=== PATIENT | female | born 1945 | race Caucasian/White ===

== ENCOUNTER → 2016-09-29 | Outpatient (CLI) | payer OTHER ==
[~2016-09-29] MED LIST: ALBUAER2 INH; ASPCH81 PO; CALCTAB5 PO; COLE625T PO; NIAC1TAB59 PO; PRED-301 PO; SNG10 PO; SYMIN160 INH; TRIA3AER NAE
--- NOTE | 2016-09-30 08:02 | MAMMOGRAPHY REPORT ---
BILATERAL DIGITAL SCREENING MAMMOGRAM WITH CAD: 09/29/2016 CLINICAL HISTORY: Routine screening. Patient has no complaints. TECHNIQUE: Bilateral CC and MLO views were obtained. Current study was also evaluated with a Compute r Aided Detection (CAD) system. COMPARISON: Comparison is made to exams dated: 09/13/2015 mammogram, 08/29/2014 mammogram, 07/28/2013 m ammogram, 07/27/2012 mammogram, 07/22/2011 mammogram, and 05/28/2010 mammogram - [facility] er. BREAST COMPOSITION: The tissue of both breasts is heterogeneously dense, which may obscure small mas ses. FINDINGS: There are stable faint punctate microcalcifications scattered bilaterally, a few benign gra m calcifications in the right breast and mild vascular calcification bilaterally. No no suspicious m ass, architectural distortion or cluster of suspicious microcalcifications is seen. IMPRESSION: ACR BI-RADS CATEGORY 1: NEGATIVE There is no mammographic evidence of malignancy. A 1 year screening mammogram is recommended. The pa tient will receive written notification of the results. Approximately 10% of breast cancers are not detected with mammography. A negative mammographic report should not delay biopsy if a clinically suggestive mass is present. Janel Puentes M.D. ay/:09/29/2016 14:51:06 Multifocal Button Grinder: Brittani KUMARI(R)(M), [facility] letter sent: Normal 1/2 BI-RADS Code: ACR BI-RADS Category 1: Negative
== END | disposition home or self-care (01) ==
LOC: C.MAMM 11:52
PROVIDERS: ATTEND Obstetrics & Gynecology
DX: Z12.31 Encounter for screening mammogram for malignant neoplasm of breast (principal)

== ENCOUNTER → 2017-03-23 | Outpatient (CLI) | payer OTHER | END | disposition home or self-care (01) | LOC: C.PAPS 18:13 | PROVIDERS: ATTEND Obstetrics & Gynecology | DX: Z01.419 Encounter for gynecological examination (general) (routine) without abnormal findings (principal) ==

== ENCOUNTER → 2017-03-24 | Outpatient (CLI) | payer OTHER ==
[2017-03-24 14:06] LABS: MANUAL MICROSCOPIC REQUIRED? YES; REVIEW REQ? NO; URINE APPEARANCE CLEAR (CLEAR); URINE BILIRUBIN NEG (NEG); URINE COLOR YELLOW; URINE NITRITE NEG (NEG); URINE PH 5.5 (4.5-7.5); URINE SPECIFIC GRAVITY 1.011 (1.000-1.030); UROBILINOGEN NEG (NEG); ZZUR CULT IF INDIC CLEAN CATCH NO
[2017-03-24 14:14] LABS: URINE BACTERIA NEG (NEG); URINE RBC 0-4 /hpf (0-4); URINE WBC 0 /hpf (0-5)
== END | disposition home or self-care (01) ==
LOC: C.LAB1850 12:28
PROVIDERS: ATTEND Obstetrics & Gynecology
DX: N39.498 Other specified urinary incontinence (principal)

== ENCOUNTER → 2017-04-06 | Outpatient (CLI) | payer OTHER ==
[2017-04-06 13:17] LABS: BASO % 0.4 %; BASO ABS # 0.03 K/uL (0-0.2); COMPLETE YES; EOS % 4.2 %; HEMATOCRIT 42.4 % (37-47); IG% 0.3 %; LYMPH % 27.6 %; LYMPH ABS # 1.97 K/uL (1.2-3.4); MEAN CELL VOLUME 92.6 fL (80-100); MEAN CORPUSCULAR HEMOGLOBIN 30.3 pg (25-34); MEAN CORPUSCULAR HGB CONC 32.8 g/dl (32-36); MEAN PLATELET VOLUME 10.6 fL (7.4-10.4); MONO % 10.7 %; NEUT % 56.8 %; PLATELET COUNT 261 K/uL (130-400); RED BLOOD COUNT 4.58 M/uL (4.2-5.4); WHITE BLOOD COUNT 7.13 K/uL (4.8-10.8)
[2017-04-06 13:46] LABS: BLOOD UREA NITROGEN 11 mg/dl (7-18); BUN/CREATININE RATIO 12.7 (10-20); CALCIUM 8.9 mg/dl (8.5-10.1); CARBON DIOXIDE 28 mmol/L (21-32); CHLORIDE 107 mmol/L (98-107); CHOLESTEROL 248 mg/dl (0-200); CREATININE 0.86 mg/dl (0.60-1.20); GLUCOSE 77 mg/dl (70-99); POTASSIUM 3.5 mmol/L (3.5-5.1); SODIUM 141 mmol/L (136-145)
[2017-04-06 13:57] LABS: CHOLESTEROL/HDL RATIO 3.4; HDL CHOLESTEROL 74 mg/dl; LDL CHOLESTEROL CALCULATED 153 mg/dl; TRIGLYCERIDES 104 mg/dl (0-150); VERY LOW DENSITY LIPOPROT CALC 21 mg/dl
[2017-04-06 14:16] LABS: ESTIMATED AVERAGE GLUCOSE 120 mg/dl; HA1C FLAG Normal (Normal)
[2017-04-06 15:10] LABS: URINE APPEARANCE TURBID (CLEAR); URINE BILIRUBIN NEG (NEG); URINE COLOR DK YELLOW; URINE EPITHELIAL CELL AUTO 20-30 /lpf (0-5); URINE NITRITE NEG (NEG); URINE SPECIFIC GRAVITY 1.024 (1.000-1.030); UROBILINOGEN NEG (NEG)
[2017-04-06 15:11] LABS: MANUAL MICROSCOPIC REQUIRED? NO; REVIEW REQ? NO
== END | disposition home or self-care (01) ==
LOC: C.LAB1850 11:51
PROVIDERS: ATTEND Internal Medicine
DX: I10 Essential (primary) hypertension (principal)

== ENCOUNTER 2017-07-15 19:30 | Inpatient (IN) | payer OTHER ==
[~2017-07-15] VITALS: Ht 157.5 cm; Wt 65.3 kg
[2017-07-15] MEDS ORDERED: METHYLPREDNISOLONE 125 MG VIAL ONE (21:24)
[2017-07-15 23:22] LABS: HEMATOCRIT 39.6 % (37-47); MEAN CELL VOLUME 92.3 fL (80-100); MEAN CORPUSCULAR HEMOGLOBIN 30.3 pg (25-34); MEAN CORPUSCULAR HGB CONC 32.8 g/dl (32-36); PLATELET COUNT 217 K/uL (130-400); RED CELL DISTRIBUTION WIDTH CV 12.6 % (11.5-14.5); RED CELL DISTRIBUTION WIDTH SD 42.5 fL (36.4-46.3); WHITE BLOOD COUNT 8.39 K/uL (4.8-10.8)
[2017-07-15 23:24] LABS: BLOOD UREA NITROGEN 9 mg/dl (7-18); CALCIUM 8.7 mg/dl (8.5-10.1); CARBON DIOXIDE 28 mmol/L (21-32); CREATININE 0.89 mg/dl (0.60-1.20); GLUCOSE 124 mg/dl (70-99); POTASSIUM 3.3 mmol/L (3.5-5.1); SODIUM 135 mmol/L (136-145)
--- NOTE | 2017-07-15 23:40 | History and Physical ---
History & Physical Date & Time of Service: Jul 15, 2017 at 23:33 Chief Complaint: Trouble Breathing Primary Care Physician: Jeremie Durand M.D. History of Present Illness Source: patient Pt is a pleasant 71F with a PMhx of adult onset asthma that presents with a two day history of worsening SOB and cough. Pt reports feeling chills starting today as well. The cough is worse at night and she is coughing up purulent sputum. Pt saw her Die Cast Supervisor today that started her on 40mg daily of Prednisone. Patient did not have a chance to fill that prescription. Patient has been diagnosed with severe intermittent asthma that requires 5mg of Prednisone daily to control. Pt denies any smoking history although her dad and step mom both smokes. Pt is not on home oxygen. PMHx: no coronary events. FMHx: Twin brother has heart disease. SHx: Pt is retired. Never smoker. Past Medical/Surgical History Medical Problems: (1) Asthma Social History Marital Status: Immunizations History of Influenza Vaccine: Yes History of Tetanus Vaccine?: No History of Pneumococcal: No Pneumococcal Date: Jan 23, 2010 History of Hepatitis B Vaccine: No Allergies Coded Allergies: No Known Allergies (Verified , 07/16/17) Home Medications Scheduled Alendronate/Cholecalciferol (Fosamax+D 70MG/2800 Iu), 1 TABLET PO WK Aspirin (Aspirin Ec), 81 MG PO DAILY Azithromycin (Zithromax Z-Carlo), 1 PKT PO UD Budesonide/Formoterol Fumarate (Symbicort 160/4.5 Inhaler ), 2 PUFFS INH BID Colesevelam Hcl (Welchol), 3 TABS PO BID Montelukast Sodium (Singulair), 10 MG PO DAILY Niacin Ext Rel (Niaspan Ext Rel), 500 MG PO DAILY Prednisone (Prednisone), 5 MG PO DAILY Review of Systems Constitutional: + chills, No fever, No weight loss ENT: No hearing loss Respiratory: + cough, + sputum, + wheezing, + shortness of breath, + dyspnea on exertion, + dyspnea at rest Abdomen: No pain, No nausea, No vomiting, No diarrhea, No constipation Musculoskeletal: + joint pain (chronic back pain) Genitourinary - Female: No dysuria, No urinary frequency Neurologic: No memory loss, No paralysis, No weakness, No numbness/tingling Endocrine: No fatigue Integumentary: No rash Physical Exam General Appearance: WD/WN, no apparent distress Head: normocephalic, atraumatic Eyes: normal inspection, PERRL ENT: normal ENT inspection Neck: supple Respiratory/Chest: chest non-tender, + crackles (right size), + wheezing ( lower lobes bilaterally) Cardiovascular: regular rate, rhythm, no edema, no gallop, no JVD, no murmur, normal peripheral pulses, + tachycardia Abdomen/GI: normal bowel sounds, non tender, soft, no organomegaly, no pulsatile mass Extremities/Musculoskelatal: no calf tenderness, no pedal edema, normal range of motion, + pertinent finding (RA in all PIP joints bilaterally ) Neurologic/Psych: manager student services II-XII nml as tested, no motor/sensory deficits, alert, normal mood/affect, oriented x 3 Diagnostics Laboratory Results Results Past 24 Hours Test 07/15/17 21:45 Range/Units White Blood Count 8.39 4.8-10.8 K/uL Red Blood Count 4.29 4.2-5.4 M/uL Hemoglobin 13.0 12.0-16.0 g/dL Hematocrit 39.6 37-47 % Mean Corpuscular Volume 92.3 80-100 fL Mean Corpuscular Hemoglobin 30.3 25-34 pg Mean Corpuscular Hemoglobin Concent 32.8 32-36 g/dl RDW Standard Deviation 42.5 36.4-46.3 fL RDW Coefficient of Variation 12.6 11.5-14.5 % Platelet Count 217 130-400 K/uL Mean Platelet Volume 10.0 7.4-10.4 fL Sodium Level 135 136-145 mmol/L Potassium Level 3.3 3.5-5.1 mmol/L Chloride Level 102 98-107 mmol/L Carbon Dioxide Level 28 21-32 mmol/L Anion Gap 5.0 3-11 mmol/L Blood Urea Nitrogen 9 7-18 mg/dl Creatinine 0.89 0.60-1.20 mg/dl Estimated GFR () 75.6 Estimated GFR (Non- 65.2 BUN/Creatinine Ratio 10.3 10-20 Random Glucose 124 70-99 mg/dl Calcium Level 8.7 8.5-10.1 mg/dl Total Creatine Kinase 284 26-192 U/L Creatine Kinase MB 1.0 0.5-3.6 ng/ml Creatine Kinase MB Ratio 0-3.0 Troponin I < 0.015 0-0.045 ng/ml Microbiology Results 07/15/17 Blood Culture, Received Pending 07/15/17 Blood Culture, Received Pending EKG Sinus Tachycardia - reviewed, no ST segment abnormalities. Impression Assessment and Plan Pleasant 71F with adult onset asthma is being admitted for asthma exacerbation. Given 125mg IV solu medrol in the ER with significant improvement in wheezing and cough. Has a new Oxygen requirement. Plan is for IV Steroids, Inhalers and Abx and DC when ready. Asthma Exacerbation Adult onset vs COPD, it's unclear. X-ray results not reviewed. Pt has wheezing and crackles on exam. Consider X- ray if pt is not improving. Continue Azithromycin 250mg x 4 days. (started as outpatient) c/w Montekulast QHS. Duonebs Q6H Albuterol Nebs Q2H PRN. continue home Symbicort 2puffs BID. Solu Medrol 60mh Q6H. Wean O2 as tolerated. Keep an eye on sugars now that pt is on Prednisone. Low Potassium KCL 20mg BID PO. Elevated CK (384) Unclear what is the etiology, was a >600 in a previous visit. Pt is not on a statin. Primary Prevention c/w ASA daily HLD C/w Niacin daily pt cannot tolerate statins. Will hold other HLD agent because it's non formulary. DVT Proph: Hep SQ BID. Diet: Heart Healthy Dispo: Anticipate no DC needs. Admit to Med Surg. FULL CODE - Pt does not want [facility] ventilation. Resident Physician Supervision Note: Pt evaluated independently. I discussed the case with the resident and agree with the findings and plan as documented in the note. Any exceptions or clarifications are listed here: 71 y/o F Hx osteoporosis, asthma - likely COPD - prednisone-dependent Presents with progressive SOB and was hypoxic on arrival to the ER. It was reported by family that she may have been confused earlier in the day OE AAO x 3 S1,2 R Very poor air movement NT, ND No CCE P: Placed on IV steroids, nebs, Abx, 02 protocol Would consult pulm if there is no short-term improvement Documented By: Samy Mccullough Resuscitation Status VTE Prophylaxis Will order VTE Prophylaxis: Yes Resident Involvement: Resident Care Provided Care Provided: Adult Hospital Medicine
[2017-07-15] MEDS ORDERED: ALUMINUM/MAGNESIUM/SIMETH (MAALOX MAX) 30 ML UDC PO PRN (23:45)
[2017-07-15] MEDS ORDERED: ACETAMINOPHEN 325 MG TAB PO PRN (23:45)
[2017-07-15] MEDS ORDERED: ONDANSETRON INJ 2 MG/ML 2 ML VIAL IV PRN (23:45)
[2017-07-15] MEDS ORDERED: POLYETHYLENE (MIRALAX) 17 GM PACK PO PRN (23:45)
[2017-07-15] MEDS ORDERED: MAGNESIUM HYDROXIDE SUSP 30 ML UDC PO PRN (23:45)
[2017-07-15] MEDS ORDERED: ZOLPIDEM TARTRATE 5 MG TAB PO PRN ×2 (23:45)
[2017-07-15] MEDS ORDERED: ALBUTEROL 0.083% NEBU SOLN 3 ML VIAL INH PRN (23:45)
[2017-07-16] VITALS (8 sets, daily range): BP systolic 116–143; BP diastolic 61–70; PULSE 88–115; TEMP 36.6–36.9; O2SAT 91–96; Ht 157.5 cm; Wt 65.3 kg
[2017-07-16] MEDS ORDERED: ASPI81TA28 PO (00:15)
[2017-07-16] MEDS ORDERED: WLC625 PO (00:17)
[2017-07-16] MEDS ORDERED: MONT1TAB3 PO (00:17)
[2017-07-16] MEDS ORDERED: FSMD/70 PO (00:17)
[2017-07-16] MEDS ORDERED: AZITTAB PO (00:18)
--- NOTE | 2017-07-16 02:40 | EMERGENCY ROOM VISIT NOTE ---
History Report prepared by Penny: Lisa Cohen Under the Supervision of: Dr. Sina Gates M.D. Chief Complaint: SHORTNESS OF BREATH Stated Complaint: TROUBLE BREATHING History of Present Illness The patient is a 71 year old female who presents to the Emergency Room with complaints of worsening SOB starting earlier today. The patient has been having a severe cough for the past 2 weeks. She has a history of asthma. She saw her lung doctor today who started her on Zithromax and increased her prednisone. Her SOB has worsened since her appointment. She has been using nebulizers at home to only brief relief. She reports back pain and nausea. She has chest pain from coughing. Her notes that she has been weak and confused. She has been admitted once before for SOB. She is not on oxygen at home. She has a history of hypertension and high cholesterol. She has never smoked. Source of History: patient, spouse/significant other Onset: earlier today Position: other (breathing) Quality: other (SOB) Timing: worsening Modifying Factors (Relieving): other (nebulizer) Associated Symptoms: + cough, + chest pain, + back pain, + weakness Review of Systems See HPI for pertinent positives and negatives. A total of ten systems were reviewed and were otherwise negative. Past Medical & Surgical Medical Problems: (1) Asthma exacerbation Family History No pertinent family history stated. Social History Smoking Status: Never Smoker Marital Status: Housing Status: lives with family Current/Historical Medications Scheduled Alendronate/Cholecalciferol (Fosamax+D 70MG/2800 Iu), 1 TABLET PO WK Aspirin (Aspirin Ec), 81 MG PO DAILY Azithromycin (Zithromax Z-Carlo), 1 PKT PO UD Budesonide/Formoterol Fumarate (Symbicort 160/4.5 Inhaler ), 2 PUFFS INH BID Colesevelam Hcl (Welchol), 3 TABS PO BID Montelukast Sodium (Singulair), 10 MG PO DAILY Niacin Ext Rel (Niaspan Ext Rel), 500 MG PO DAILY Prednisone (Prednisone), 5 MG PO DAILY Allergies Coded Allergies: No Known Allergies (Verified , 07/16/17) Physical Exam Physical Exam GENERAL: Awake, alert, well-appearing, in moderate distress HENT: Normocephalic, atraumatic. Oropharynx unremarkable. EYES: Normal conjunctiva. Sclera non-icteric. NECK: Supple. No nuchal rigidity. FROM. No masses. RESPIRATORY: Clear to auscultation. Inspiratory and expiratory wheezes. Scattered rhonchi. No rales. Increased respiratory effort. CARDIAC: Normal rate. Normal rhythm. No murmurs. No rubs. Extremities warm and well perfused. Pulses equal. No JVD. GI: Soft, non-distended. No tenderness to palpation. No rebound or guarding. No masses. RECTAL: Deferred. MUSCULOSKELETAL: Atraumatic. Chest examination reveals no tenderness. There is no CVA tenderness to palpation. No joint edema. LOWER EXTREMITIES: Calves are equal size bilaterally and non-tender. No edema. No discoloration. NEURO: Normal sensorium. No sensory or motor deficits noted. SKIN: No rash or jaundice noted. Medical Decision & Procedures ER Provider Diagnostic Interpretation: X-ray: Per my interpretation, radiologist review. Chest X-ray: Trace effusion. Possible minimal pulmonary edema. No other pathology noted. Laboratory Results 07/15/17 21:45 07/15/17 21:45 Test 07/15/17 21:45 Red Blood Count 4.29 M/uL (4.2-5.4) Mean Corpuscular Volume 92.3 fL (80-100) Mean Corpuscular Hemoglobin 30.3 pg (25-34) Mean Corpuscular Hemoglobin Concent 32.8 g/dl (32-36) RDW Standard Deviation 42.5 fL (36.4-46.3) RDW Coefficient of Variation 12.6 % (11.5-14.5) Mean Platelet Volume 10.0 fL (7.4-10.4) Anion Gap 5.0 mmol/L (3-11) Estimated GFR () 75.6 Estimated GFR (Non- 65.2 BUN/Creatinine Ratio 10.3 (10-20) Calcium Level 8.7 mg/dl (8.5-10.1) Total Creatine Kinase 284 U/L (26-192) Creatine Kinase MB 1.0 ng/ml (0.5-3.6) Creatine Kinase MB Ratio (0-3.0) Troponin I < 0.015 ng/ml (0-0.045) Laboratory results reviewed by me ECG Per My Interpretation Indication: SOB/dyspnea Rate (beats per minute): 117 Rhythm: sinus tachycardia Findings: nonspecific-ST abn, no ectopy, other (normal intervals) ED Course 2113: The patient was evaluated in room C4. A complete history and physical exam was performed. 2143: I reevaluated the patient. She is resting comfortably. 2257: I reevaluated the patient. She is feeling better, but still requiring supplemental oxygen. I discussed the test results and treatment plan with her. The patient will be evaluated for further management. 2305: I discussed the patient's case with ROBER Benjamin hospitalist. The patient will be evaluated for further treatment and disposition. Medical Decision Triage Nursing notes reviewed and agree them. Additional history obtained from the family. The patient's history was concerning for shortness of breath. Differential diagnosis: Etiologies such as reactive airway disease, pneumonia, COPD, CHF, cardiac ischemia, pulmonary embolism, pneumothorax, musculoskeletal, infections, gastrointestinal, as well as others were entertained. Physical examination: As above. The patient had increased work of breathing. She was wheezing intact. She was requiring supplemental oxygen to maintain her saturations in the low 90s. ER treatment provided: DuoNeb Solu-Medrol Hour-long DuoNeb On reassessment the patient felt better. Diagnostic interpretation by me: The electrocardiogram as above. Nonspecific ST changes. The labs revealed an unremarkable CBC and chemistry panel. Troponin negative. Imaging studies: Chest x-ray as above. The patient was evaluated and was having significant issues with her breathing. She has a history of asthma the patient was wheezing. She was treated with bronchodilators and steroids. She is getting better but still needs further management in the hospital. Consultation: A consultation was placed with the hospitalist. The case was discussed and diagnostics were reviewed. The patient was evaluated in the ER for further treatment. Medication Reconcilliation Current Medication List: was personally reviewed by me Blood Pressure Screening Patient's blood pressure: Normal blood pressure Blood pressure disposition: Did not require urgent referral Consults Time Called: 2300 Consulting Physician: ROBER Benjamin hospitalist Returned Call: [phone] Discussed the patient's case. The patient will be evaluated for further treatment and disposition. Impression Primary Impression: SOB (shortness of breath) Additional Impression: Reactive airway disease Scribe Attestation The scribe's documentation has been prepared under my direction and personally reviewed by me in its entirety. I confirm that the note above accurately reflects all work, treatment, procedures, and medical decision making performed by me. Departure Information Dispostion Being Evaluated By Hospitalist Referrals Jeremie Durand M.D. (PCP) Patient Instructions My [facility] Problem Qualifiers
[2017-07-16] MEDS: ALBUT/IPRATROP 3MG/0.5MG NEB 3 ML VIAL NEB SCH ×4 (03:25→19:49)
[2017-07-16] MEDS: METHYLPREDNISOLONE IV 60 MG in SYRINGE 0 ML IV SCH ×4 (03:26→22:22)
--- NOTE | 2017-07-16 07:22 | DIAGNOSTIC IMAGING REPORT ---
CHEST ONE VIEW PORTABLE CLINICAL HISTORY: SOB dyspnea COMPARISON STUDY: 08/25/2013 FINDINGS: Prominent pulmonary vasculature. Slight increase in cardiac size compared to the prior study. Diaphragms are smooth. IMPRESSION: Congestive heart failure The above report was generated using voice recognition software. It may contain grammatical, syntax or spelling errors. Electronically signed by: Micah Marie M.D. 07/16/2017 7:21 AM Dictated Date/Time: 07/16/2017 7:20 AM
[2017-07-16] MEDS: BUDESONIDE/FORMOTEROL FUMARATE 160/4.5 60 PUFFS/INHALER INH SCH ×2 (07:33→20:02)
[2017-07-16] MEDS: POTASSIUM CHLORIDE 20 MEQ TABCR PO SCH ×2 (07:34→20:03)
[2017-07-16] MEDS: TRIAMCINOLONE ACET NASAL SPRAY 10.8ML BTL NAE SCH (07:34)
[2017-07-16] MEDS: NIASPAN 500 MG TABCR PO SCH (07:34)
[2017-07-16] MEDS: CALCIUM 600MG + VIT D 400 IU TAB PO SCH (07:35)
[2017-07-16] MEDS: MONTELUKAST SOD 10 MG TAB PO SCH (07:35)
[2017-07-16] MEDS: AZITHROMYCIN 250 MG TAB PO SCH (07:35)
[2017-07-16] MEDS: ASPIRIN 81 MG ECTAB PO SCH (07:35)
[2017-07-16 07:47] LABS: HEMATOCRIT 38.2 % (37-47); HEMOGLOBIN 12.4 g/dL (12.0-16.0); IG# 0.02 K/uL (0.00-0.02); LYMPH % 2.2 %; LYMPH ABS # 0.19 K/uL (1.2-3.4); MEAN CORPUSCULAR HEMOGLOBIN 29.9 pg (25-34); MEAN CORPUSCULAR HGB CONC 32.5 g/dl (32-36); MEAN PLATELET VOLUME 10.2 fL (7.4-10.4); MONO ABS # 0.09 K/uL (0.11-0.59); NEUT % 96.6 %; NEUT ABS # 8.44 K/uL (1.4-6.5); PLATELET COUNT 201 K/uL (130-400); RED CELL DISTRIBUTION WIDTH CV 12.7 % (11.5-14.5); RED CELL DISTRIBUTION WIDTH SD 42.8 fL (36.4-46.3); WHITE BLOOD COUNT 8.74 K/uL (4.8-10.8)
[2017-07-16] MEDS ORDERED: NURSING VERBAL MED ORDER ONE ×2 (08:00→10:30)
[2017-07-16 08:15] LABS: CALCIUM 8.3 mg/dl (8.5-10.1); CREATININE 1.16 mg/dl (0.60-1.20); POTASSIUM 3.1 mmol/L (3.5-5.1)
[2017-07-16] MEDS: BENZONATATE 100MG CAP PO PRN ×3 (09:35→21:56)
--- NOTE | 2017-07-16 10:42 | Family Medicine Progress Note ---
Progress Note Date of Service Jul 16, 2017. Subjective Pt evaluation today including: conversation w/ patient, physical exam, chart review, lab review, review of studies, review of inpatient medication list Pain: denies PO Intake: adequate Voiding: no voiding problems Patient reports significant improvement from arrival. SOB improved. She denies chest tightness and wheezing. She still reports cough. She felt relief from nebulizer treatment Constitutional: No fever, No chills ENT: No nasal symptoms, No sore throat Respiratory: + cough, No sputum, No wheezing, No shortness of breath Cardiovascular: No chest pain, No edema, No palpitations Abdomen: No pain, No nausea, No vomiting Musculoskeletal: No swelling Female : No dysuria, No urinary frequency Skin: No rash, No itch Medications Medications Administered Medications (Trade) Dose Ordered Sig/Daryl Route Start Time Stop Time Status Last Admin Dose Admin Heparin Sodium (Porcine) (Heparin Sq 5000 Unit/0.5ml) 5,000 unit Q12 SQ 07/16/17 10:00 08/15/17 09:59 07/16/17 21:58 5,000 UNIT Aspirin (Ecotrin Tab) 81 mg DAILY PO 07/16/17 08:00 08/15/17 08:59 07/16/17 07:35 81 MG Budesonide/ Formoterol Fumarate (Symbicort 160/ 4.5 Inh) 2 puffs BID INH 07/16/17 08:00 08/15/17 08:59 07/16/17 20:02 2 PUFFS Montelukast Sodium (Singulair Tab) 10 mg DAILY PO 07/16/17 08:00 08/15/17 08:59 07/16/17 07:35 10 MG Niacin (Niaspan Extended Rel Tab) 500 mg DAILY PO 07/16/17 08:00 08/15/17 08:59 07/16/17 07:34 500 MG Triamcinolone Acetonide (Nasacort Allergy 24hr) 2 sprays DAILY VICTOR M 07/16/17 08:00 08/15/17 08:59 07/16/17 07:34 2 SPRAYS Calcium/Vitamin D (Caltrate Plus Tab) 1 tab DAILY PO 07/16/17 08:00 08/15/17 08:59 07/16/17 07:35 1 TAB Albuterol/ Ipratropium (Duoneb) 3 ml Q6R NEB 3/29/18 03:00 08/15/17 02:59 07/17/17 07:25 3 ML Methylprednisolone Sodium Succinate 60 mg/Syringe 0.96 ml @ 1.5 mls/min Q6H IV 07/16/17 02:00 07/16/17 15:14 DC 07/16/17 14:10 1.5 MLS/MIN Azithromycin (Zithromax Tab) 250 mg QAM PO 07/16/17 08:00 07/19/17 08:01 07/16/17 07:35 250 MG Potassium Chloride (Klor-Con Tab) 20 meq BID PO 07/16/17 08:00 08/15/17 08:59 07/16/17 20:03 20 MEQ Benzonatate (Tessalon Perles Cap) 100 mg TID PRN PO 07/16/17 08:00 08/15/17 07:59 07/16/17 21:56 100 MG Potassium Chloride (Klor-Con Tab) 20 meq TODAY@1100 ONCE PO 07/16/17 11:00 07/16/17 11:01 DC 07/16/17 11:01 20 MEQ Methylprednisolone Sodium Succinate 60 mg/Syringe 0.96 ml @ 1.5 mls/min Q8H IV 07/16/17 22:00 07/17/17 06:01 DC 07/17/17 06:30 1.5 MLS/MIN Objective Vital Signs Date Time Temp Pulse Resp B/P (MAP) Pulse Ox O2 Delivery O2 Flow Rate FiO2 07/16/17 08:00 Nasal Cannula 2.0 07/16/17 07:32 36.6 88 18 116/61 (79) 96 2.0 07/16/17 03:26 93 18 96 Nasal Cannula 2.0 07/16/17 01:17 36.7 115 20 139/64 92 Room Air 07/16/17 00:45 Nasal Cannula 2.0 07/16/17 00:16 114 22 127/49 93 Physical Exam Notes: GENERAL: alert, no distress, non-toxic EYE EXAM: normal conjunctiva, PERRL and EOM's grossly intact OROPHARYNX: no exudate, no erythema, lips, buccal mucosa, and tongue normal and mucous membranes are moist NECK: supple, no adenopathy, non-tender LUNGS:NO wheezing, No crackles, good air entry bilaterally, Normal chest wall mechanics HEART: no murmurs, S1 normal and S2 normal ABDOMEN: abdomen soft, non-tender, normo-active bowel sounds, no masses, no rebound or guarding. UPPER EXTREMITIES: upper extremities are grossly normal. LOWER EXTREMITIES: No pitting edema. NEURO EXAM: Normal sensorium, cranial nerves II-XII grossly intact, normal speech Laboratory Results Results Past 24 Hours Test 07/15/17 21:45 07/16/17 06:41 07/16/17 06:42 Range/Units White Blood Count 8.39 8.74 4.8-10.8 K/uL Red Blood Count 4.29 4.15 4.2-5.4 M/uL Hemoglobin 13.0 12.4 12.0-16.0 g/dL Hematocrit 39.6 38.2 37-47 % Mean Corpuscular Volume 92.3 92.0 80-100 fL Mean Corpuscular Hemoglobin 30.3 29.9 25-34 pg Mean Corpuscular Hemoglobin Concent 32.8 32.5 32-36 g/dl RDW Standard Deviation 42.5 42.8 36.4-46.3 fL RDW Coefficient of Variation 12.6 12.7 11.5-14.5 % Platelet Count 217 201 130-400 K/uL Mean Platelet Volume 10.0 10.2 7.4-10.4 fL Sodium Level 135 136 136-145 mmol/L Potassium Level 3.3 3.1 3.5-5.1 mmol/L Chloride Level 102 104 98-107 mmol/L Carbon Dioxide Level 28 20 21-32 mmol/L Anion Gap 5.0 12.0 3-11 mmol/L Blood Urea Nitrogen 9 11 7-18 mg/dl Creatinine 0.89 1.16 0.60-1.20 mg/dl Estimated GFR () 75.6 54.9 Estimated GFR (Non- 65.2 47.3 BUN/Creatinine Ratio 10.3 9.8 10-20 Random Glucose 124 221 70-99 mg/dl Calcium Level 8.7 8.3 8.5-10.1 mg/dl Total Creatine Kinase 284 26-192 U/L Creatine Kinase MB 1.0 0.5-3.6 ng/ml Creatine Kinase MB Ratio 0-3.0 Troponin I < 0.015 0-0.045 ng/ml Neutrophils (%) (Auto) 96.6 % Lymphocytes (%) (Auto) 2.2 % Monocytes (%) (Auto) 1.0 % Eosinophils (%) (Auto) 0.0 % Basophils (%) (Auto) 0.0 % Neutrophils # (Auto) 8.44 1.4-6.5 K/uL Lymphocytes # (Auto) 0.19 1.2-3.4 K/uL Monocytes # (Auto) 0.09 0.11-0.59 K/uL Eosinophils # (Auto) 0.00 0-0.5 K/uL Basophils # (Auto) 0.00 0-0.2 K/uL Immature Granulocyte % (Auto) 0.2 % Immature Granulocyte # (Auto) 0.02 0.00-0.02 K/uL Est Creatinine Clear Calc Drug Dose 39.5 ml/min Prothrombin Time 10.8 9.0-12.0 SECONDS Prothromb Time International Ratio 1.0 0.9-1.1 Microbiology Results 07/15/17 Blood Culture, Received Pending 07/15/17 Blood Culture, Received Pending Assessment and Plan 71 yo F with history of Adult onset Asthma ( Dx 15 yrs ago) on chronic prednisone 5mg at home presenting with Asthma exacerbation placed on IV Solumedrol, Azithromycin, clinically improving Asthma Exacerbation History of Adult onset asthma on chronic prednisone 5mg daily at home, albuterol nebulizer Continue Azithromycin 250mg x 4 days. (started as outpatient) Duonebs Q6H Albuterol Nebs Q2H PRN. c/w Montekulast QHS. continue home Symbicort 2puffs BID. Solu Medrol 60mh Q6H, plan to convert to PO Prednisone taper. Start at 60 mg tomorrow morning Wean O2 as tolerated. Hypokalemia KCL 20mg BID PO. Given extra 20 meq this morning Elevated CK (384) Unclear what is the etiology, was a >600 in a previous visit. trending down Primary Prevention c/w ASA daily HLD C/w Niacin daily DVT Proph: Hep SQ BID. Diet: Heart Healthy FULL CODE - Pt does not want terminologist mech ventilation. Discharge planning: home Resident Tracking Resident Involvement: Resident Care Provided Care Provided: Adult Hospital Medicine Assessment/Plan Resident Physician Supervision Note: I was present with Dr. Pacheco during the history and exam. I discussed the case with the resident and agree with the findings and plan as documented in the note. Any exceptions or clarifications are listed here: Pt reports significant improvement in respiratory status since admission with reduction in chest tightness and shortness of breath. Lung examination still diffusely reduced with wheezing especially notable at the b/l bases. Agree w/ continued O2 support w/ wean as tolerated, taper of IV steroids to PO tomorrow and nebs q4P. Other chronic management as noted above.
[2017-07-16] MEDS ORDERED: POTASSIUM CHLORIDE 20 MEQ TABCR PO ONE (11:00)
[2017-07-16] MEDS: HEPARIN SOD 5000 UNIT/0.5 ML CARP SQ SCH ×2 (11:03→21:58)
[2017-07-17 01:45] VITALS: PULSE 85; O2SAT 93
[2017-07-17] MEDS: ALBUT/IPRATROP 3MG/0.5MG NEB 3 ML VIAL NEB SCH ×2 (01:45→07:25)
[2017-07-17] MEDS: METHYLPREDNISOLONE IV 60 MG in SYRINGE 0 ML IV SCH (06:30)
[2017-07-17 07:25] VITALS: PULSE 87; O2SAT 96
[2017-07-17 07:34] VITALS: BP 121/64; PULSE 88; TEMP 36.8; O2SAT 93
[2017-07-17] MEDS: TRIAMCINOLONE ACET NASAL SPRAY 10.8ML BTL NAE SCH (07:53)
[2017-07-17] MEDS: BUDESONIDE/FORMOTEROL FUMARATE 160/4.5 60 PUFFS/INHALER INH SCH (07:53)
[2017-07-17] MEDS: MONTELUKAST SOD 10 MG TAB PO SCH (07:53)
[2017-07-17] MEDS: CALCIUM 600MG + VIT D 400 IU TAB PO SCH (07:53)
[2017-07-17] MEDS: NIASPAN 500 MG TABCR PO SCH (07:53)
[2017-07-17] MEDS: ASPIRIN 81 MG ECTAB PO SCH (07:54)
[2017-07-17] MEDS: AZITHROMYCIN 250 MG TAB PO SCH (07:55)
[2017-07-17] MEDS: POTASSIUM CHLORIDE 20 MEQ TABCR PO SCH (07:56)
[2017-07-17] MEDS: HEPARIN SOD 5000 UNIT/0.5 ML CARP SQ SCH (07:59)
[2017-07-17] MEDS ORDERED: BENZONATATE 100MG CAP PO PRN (08:15)
[2017-07-17 09:09] LABS: CALCIUM 8.5 mg/dl (8.5-10.1); CREATININE 0.98 mg/dl (0.60-1.20); POTASSIUM 3.4 mmol/L (3.5-5.1)
[2017-07-17] MEDS ORDERED: POTASSIUM CHLORIDE 20 MEQ TABCR PO STA (10:50)
[2017-07-17] MEDS ORDERED: ALBINS INH (10:56)
--- NOTE | 2017-07-17 11:04 | Discharge Instructions ---
Discharge Instructions Date of Service Jul 17, 2017. Admission Reason for Admission: Asthma Exacerbation Discharge Discharge Diagnosis / Problem: asthma exacerbation Discharge Goals Goal(s): Decrease discomfort, Improve function, Increase independence, Improve disease control, Diagnostic testing, Therapeutic intervention, Prevent Disease Progression Activity Recommendations Activity Limitations: as noted below Lifting Limitations: gradually increase as tolerated Exercise/Sports Limitations: as tolerated Shower/Bathe: no limitations Driving or Machine Use: no limitations . Instructions / Follow-Up Instructions / Follow-Up Mrs. Medel, Oskar were diagnosed with asthma exacerbation. Your symptoms have improved. Please continue your medications as follows Azithromycin - take 3 more days (prescribed by Dr. Lambert) Prednisone- take 50 mg x 4 days (given by hospital) and then continue the prednisone taper as prescribed by Dr. Lambert, until you reach your daily 5 mg dose. Please follow up with Dr. Durand or Dr. Lambert within 3-5 days for a recheck of your asthma. Please continue using your albuterol every 4-6 hrs for the next couple of days. Take you steroid inhaler and singulair daily. If you experience any worsening of shortness of breath or chest or you have other concerns, please follow up with your PCP or come back to the ER. Thank you Current Hospital Diet Patient's current hospital diet: AHA Diet (Heart Healthy) Discharge Diet Recommended Diet: Regular Diet Pending Studies Studies pending at discharge: no Medical Emergencies . Who to Call and When: Medical Emergencies: If at any time you feel your situation is an emergency, please call 911 immediately. . Non-Emergent Contact Non-Emergency issues call your: Primary Care Provider, Non Destructive Testing Inspector Call Non-Emergent contact if: you have a fever . . "Provider Documentation" section prepared by Aliya Schmitz. .
[2017-07-17] MEDS ORDERED: PRED50TA PO (11:06)
--- NOTE | 2017-07-17 11:13 | Discharge Summary ---
Discharge Summary Date of Service Jul 17, 2017. Discharge Summary Admission Date: Jul 15, 2017 at 23:42 Discharge Date: Jul 17, 2017 Discharge Disposition: Home Principal Diagnosis: Asthma exacerbation Problems/Secondary Diagnoses: Hypokalemia chronically Elevated CK (384) HLD Immunizations: Have You Had Influenza Vaccine: Yes History of Tetanus Vaccine?: No History of Pneumococcal: No Pneumococcal Date: Jan 23, 2010 History of Hepatitis B Vaccine: No Procedures: CHEST ONE VIEW PORTABLE CLINICAL HISTORY: SOB dyspnea COMPARISON STUDY: 08/25/2013 FINDINGS: Prominent pulmonary vasculature. Slight increase in cardiac size compared to the prior study. Diaphragms are smooth. IMPRESSION: Congestive heart failure Medication Reconciliation New Medications: Prednisone (Prednisone) 50 Mg Tab 50 MG PO DAILY for 4 Days, #4 TAB Albuterol Sulf (Albuterol Sulfate) 2.5 Mg/3 Ml Nebu 2.5 MG INH Q4H PRN for SOB/Wheezing for 5 Days, #1 Continued Medications: Alendronate/Cholecalciferol (Fosamax+D 70MG/2800 Iu) 70 Mg Tab 1 TABLET PO WK, TAB Aspirin (Aspirin Ec) 81 Mg Tab 81 MG PO DAILY Azithromycin (Zithromax Z-Carlo) 250 Mg Tab 1 PKT PO UD for 5 Days, #6 TAB Budesonide/Formoterol Fumarate (Symbicort 160/4.5 Inhaler ) Aero 2 PUFFS INH BID, 0 Refills Colesevelam Hcl (Welchol) 625 Mg Tab 3 TABS PO BID, TAB Montelukast Sodium (Singulair) 10 Mg Tab 10 MG PO DAILY, TAB Niacin Ext Rel (Niaspan Ext Rel) 500 Mg Tabcr 500 MG PO DAILY, 0 Refills Prednisone (Prednisone) 5 Mg Tab 5 MG PO DAILY, TAB Discharge Exam 71 yo F with history of Adult onset Asthma ( Dx 15 yrs ago) on chronic prednisone 5mg at home presenting with Asthma exacerbation. She was initially seen the day of admission by her doctor of veterinary medicine who prescribed steroids and azithromycin. However, her symptoms acutely worsened so she presented to the ED. She was placed on IV Solumedrol, Azithromycin. She has shown clinical improvement. She was discharged with prednisone taper and remaining antibiotic. All other chronic and acute conditions were managed as appropriate. Resident Physician Supervision Note: I was present with Dr. Hoover during the history and exam. I discussed the case with the resident and agree with the findings and plan as documented in the note. Any exceptions or clarifications are listed here: Mrs. Medel stated that she was feeling much better in terms of her breathing this morning. Upon my exam, she had no respiratory difficulty and she had good air exchange, clear lung delgado, without wheezing. Agree with mediations as noted above, with follow up with either pulmonary medicine or internal medicine (same office) in a week to 10 days. Documented By: Jossue Navarro Review of Systems: Constitutional: No fever, No chills Eyes: No worsening of vision ENT: No hearing loss Respiratory: + cough, + sputum, No wheezing, No shortness of breath, No dyspnea on exertion, No dyspnea at rest Cardiovascular: No chest pain Abdomen: No pain, No nausea, No vomiting, No diarrhea Musculoskeletal: No joint pain Genitourinary - Female: No dysuria, No urinary frequency, No urinary urgency Physical Exam: General Appearance: no apparent distress Eyes: PERRL, EOMI ENT: hearing grossly normal Neck: supple, no JVD Respiratory/Chest: lungs clear, normal breath sounds, no respiratory distress, no accessory muscle use Cardiovascular: regular rate, rhythm, no edema Abdomen / GI: normal bowel sounds, non tender, soft Extremities: no calf tenderness Neurologic/Psychiatric: alert, normal mood/affect, oriented x 3 Hospital Course Total Time Spent: Less than 30 minutes This includes examination of the patient, discharge planning, medication reconciliation, and communication with other providers. Discharge Instructions Please refer to the electronic Patient Visit Report (Discharge Instructions) for additional information. Additional Copies To Jeremie Durand M.D.; Sina Lambert M.D.
[2017-07-17 11:18] VITALS: BP 121/64; PULSE 88; TEMP 36.8; O2SAT 93
== END 2017-07-17 13:50 | disposition home or self-care (01) | DRG 203 ==
LOC: C.EDC 19:30 → C.MS4W 23:42 → ENRESERV 23:58
PROVIDERS: ADMIT Family Medicine; ATTEND Family Medicine
DX: J45.901 Unspecified asthma with (acute) exacerbation (principal); E78.5 Hyperlipidemia, unspecified; E87.6 Hypokalemia; Z79.52 Long term (current) use of systemic steroids; Z79.82 Long term (current) use of aspirin